=== PATIENT | male | born 1995 | race Caucasian/White ===

== ENCOUNTER 2019-04-24 15:59 | Emergency (ER) | payer SELFPAY ==
[~2019-04-24] VITALS: Ht 190.5 cm; Wt 65.6 kg
--- NOTE | 2019-04-24 16:29 | NUR ---
ROWENA MAYFIELD AT BEDSIDE FOR EVAL AT THIS TIME. ASSUMED CARE OF PT AT THIS TIME.
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
[2019-04-24] MEDS ORDERED: NALOXONE 0.4 MG/ML, 1ML ONE (16:44)
--- NOTE | 2019-04-24 16:48 | NUR ---
PT TO CT SCAN VIA [facility] AT THIS TIME.
[2019-04-24] MEDS ORDERED: NALOXONE 0.4 MG/ML, 1ML IVPush PRN (17:00)
[2019-04-24] MEDS ORDERED: SODIUM CHLORIDE 0.9% 1,000ML IVBOLUS ONE ×2 (17:00→17:30)
[2019-04-24 17:02] LABS: MEAN CORPUSCULAR HEMOGLOBIN 24.6 pg (27.5-34.5); MEAN CORPUSCULAR HGB CONC 32.6 g/dL (33.2-36.2); MEAN CORPUSCULAR VOLUME 75.7 fL (81-97); MEAN PLATELET VOLUME 8.9 fL (7.4-10.4); NEUTROPHILS % (AUTO) 57 % (42-75); PLATELET COUNT 256 x10^3/uL (130-400); RED BLOOD COUNT 5.54 x10^6/uL (4.38-5.82); RED CELL DISTRIBUTION WIDTH 25.8 % (9.4-14.8)
[2019-04-24 17:08] LABS: ALANINE AMINOTRANSFERASE 14 U/L (12-78); ALBUMIN 3.5 g/dL (3.4-5.0); ANION GAP 7 mmol/L (5-15); CALCIUM 9.5 mg/dL (8.5-10.1); CHLORIDE 110 mmol/L (98-107); CREATININE 0.88 mg/dL (0.7-1.3)
[2019-04-24 17:09] LABS: SALICYLATE LEVEL < 1.7 mg/dL (2.8-20.0)
[2019-04-24 17:12] LABS: ALKALINE PHOSPHATASE 84 U/L (45-117); BILIRUBIN,TOTAL 0.5 mg/dL (0.2-1.0); TOTAL PROTEIN 6.4 g/dL (6.4-8.2)
[2019-04-24 17:35] LABS: BASOPHILS # (AUTO) 0.03 x10^3/uL (0-0.1); BASOPHILS % (AUTO) 0 % (0-1); EOSINOPHILS # (AUTO) 0.14 x10^3/uL (0-0.4); EOSINOPHILS % (AUTO) 2 % (1-7); LYMPHOCYTES % (AUTO) 32 % (22-44); MONOCYTES # (AUTO) 0.57 x10^3/uL (0.2-0.8); MONOCYTES % (AUTO) 8 % (2-9); NEUTROPHILS # (AUTO) 3.86 x10^3/uL (1.8-6.8)
[2019-04-24 17:36] LABS: MD MORPH REVIEW ONLY
--- NOTE | 2019-04-24 17:36 | NUR ---
PT CURRENTLY DOZING ON SACHA. PT AROUSES TO NAME BEING CALLED SEVERAL TIMES. FRIENDS AT BEDSIDE. SKIN PWD. RESP EVEN AND UNLABORED. 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 PT ON CONT BP, CARDIAC AND O2 MONITORS. CALL LIGHT WITHIN REACH. WILL CONT TO MONITOR PT.
[2019-04-24 17:37] LABS: ANISOCYTOSIS 2+; MICROCYTOSIS 2+; OVALOCYTES 1+; POLYCHROMASIA 1+
[2019-04-24 17:38] LABS: <PLATELET ESTIMATE> ADEQUATE; <PLT MORPHOLOGY> NORMAL PLT MORPH
[2019-04-24 17:40] LABS: MICROSCOPIC NOT IND
[2019-04-24 17:44] LABS: CULTURE INDICATED? NO
[2019-04-24 17:50] LABS: AMPHETAMINE SCREEN, URINE Negative (Negative); BARBITURATE SCREEN, URINE Negative (Negative); BENZODIAZEPINE SCREEN, URINE Positive (Negative); CANNABINOID SCREEN, URINE Positive (Negative); COCAINE SCREEN, URINE Positive (Negative); METHADONE SCREEN, URINE Negative (Negative); OPIATE SCREEN, URINE Negative (Negative)
--- NOTE | 2019-04-24 18:30 | NUR ---
ROWENA THERESA AT BEDSIDE FOR RECHECK. PT RESTING ON GURNEY. NAD NOTED. SKIN PINK, WARM AND SLIGHTLY DIAPHORETIC. PERRLA. PT RESONDS TO TOUCH. FRIEND AT BEDSIDE. PT ON CONT BP, CARDIAC AND O2 MONITORS.
--- NOTE | 2019-04-24 19:40 | NUR ---
PT CURRENTLY RESTING ON GURNEY. SKIN PINK, WARM AND SLIGHTLY DIAPHORETIC. RESP EVEN AND UNALBORED. PERRLA. PT RESPONDS TO TOUCH. FRIEND AT BEDSIDE. PT ON CONT BP, CARDIAC AND O2 MONITORS. CALL LIGHT WITHIN REACH. WILL CONT TO MONITOR PT.
--- NOTE | 2019-04-24 20:26 | NUR ---
PT CURRENTLY RESTING ON GURNEY. NAD NOTED. SKIN PWD. RESP EVEN AND UNLABORED. PT NOW MORE RESPONSIVE TO NAME BEING CALLED. PT ON CONT BP, CARDIAC AND O2 MONITORS. FRIEND AT BEDSIDE.
[2019-04-24 21:49] VITALS: BP 96/48
--- NOTE | 2019-04-24 21:49 | NUR ---
PT CURRENTLY DOZING ON GURNEY. SKIN PWD. RESP EVEN AND UNLABORED, SNORING NOTED. PERRLA. PT CONT TO BE DROWSY BUT AROUSES SLIGHTLY TO NAME AND LIGHT TOUCH. FRIEND AT BEDSIDE. PT ON CONT BP, CARDIAC AND O2 MONITORS. CALL LIGHT WITHIN REACH. WILL CONT TO MONITOR PT.
--- NOTE | 2019-04-24 22:22 | NUR ---
REPORT RECEIVED AND CARE ASSUMED. PT SLEEPING. AWAKES TO VERBAL AND STATES HE REMEMBERS HIS FRIENDS BRINGING HIM HERE. REMAINS DROWSY. FRIEND AT BEDSIDE. PT TO BE D/C WHEN SAFE TO DO SO.
== END 2019-04-24 23:44 | disposition home or self-care (01) ==
LOC: ED 23:40
DX: F12.129 Cannabis abuse with intoxication, unspecified (principal); F14.129 Cocaine abuse with intoxication, unspecified; F13.20 Sedative, hypnotic or anxiolytic dependence, uncomplicated; R41.82 Altered mental status, unspecified
CPT/HCPCS: 70450; 71045; 80053; 80307; 81003; 82962; 85025; 93005; 96361; 96374; 99284; J2310; J7030

== ENCOUNTER 2019-05-10 07:33 | Emergency (ER) | payer SELFPAY ==
[~2019-05-10] VITALS: Ht 190.5 cm; Wt 61.9 kg
[2019-05-10 07:35] VITALS: BP 117/83
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
[2019-05-10] MEDS ORDERED: IBUPROFEN 600 MG TABLET ONE (07:51)
--- NOTE | 2019-05-10 07:53 | NUR ---
X-RAY complete. Pt medicated w/ motrin for 7/10 L hand pain.
[2019-05-10] MEDS ORDERED: IBUPROFEN 600 MG TABLET PO ONE (08:00)
--- NOTE | 2019-05-10 08:34 | NUR ---
Patient given discharge instructions and they have confirmed that they understand the instructions. Patient ambulatory with steady gait.
== END 2019-05-10 08:36 | disposition home or self-care (01) ==
LOC: ED 08:35
DX: S60.222A Contusion of left hand, initial encounter (principal); K21.9 Gastro-esophageal reflux disease without esophagitis; X58.XXXA Exposure to other specified factors, initial encounter; Y93.89 Activity, other specified; Y92.89 Other specified places as the place of occurrence of the external cause; Y99.8 Other external cause status
CPT/HCPCS: 99283

== ENCOUNTER 2019-05-13 23:16 | Emergency (ER) | payer SELFPAY ==
[~2019-05-13] VITALS: Ht 190.5 cm; Wt 63.5 kg
[2019-05-14 02:46] VITALS: BP 121/71
== END 2019-05-14 02:50 | disposition home or self-care (01) ==
LOC: ED 05-14 01:03
DX: S00.83XA Contusion of other part of head, initial encounter (principal); R10.84 Generalized abdominal pain; K21.9 Gastro-esophageal reflux disease without esophagitis; Y04.0XXA Assault by unarmed brawl or fight, initial encounter; Y93.89 Activity, other specified; Y92.89 Other specified places as the place of occurrence of the external cause; Y99.8 Other external cause status
CPT/HCPCS: 36415; 70450; 70486; 80053; 83690; 85025; 99284